=== PATIENT | female | born 1950 | race Caucasian/White ===

== ENCOUNTER 2016-11-19 15:00 | Emergency (ER) | payer MEDICARE, BC ==
[~2016-11-19] VITALS: Ht 157.5 cm; Wt 68.2 kg
[~2016-11-19 15:00] MED LIST: ATEN1TAB74 PO; CANA100T PO; CHOL50006 PO; CYCL1TAB29 PO; DAPA1TAB PO; DUEX800T PO; GABA100C4 PO; HYDR-3534 PO; HYDR-3580 PO; LIAL1.2T PO; METF1000 PO; PANT40TA3 PO; QUIN20TA4 PO; ROSU20 PO; VICT18IN SQ
[2016-11-19 15:02] VITALS: BP 147/69; PULSE 78; RESP 12; TEMP 97; O2SAT 99
[2016-11-19] MEDS ORDERED: ORPHENADRINE INJ 60 MG/2 ML AMP IM ONE (17:45)
[2016-11-19] MEDS ORDERED: ACETAMINOPHEN/HYDROcodone 325 MG/5 MG TAB PO ONE (17:45)
--- NOTE | 2016-11-19 17:51 | PD ---
HPI Chief Complaint: Back/ Neck Pain or Injury Time Seen by Provider: 17:46 Travel History International Travel<30 days: No Contact w/Intl Traveler<30days: No Traveled to known affect area: No History of Present Illness HPI 66-year-old female presents to the emergency room for evaluation of back pain that started this morning. Pain is in the left mid thoracic paraspinous musculature. States it feels like a spasm; it comes and goes. When it occurs it is a sharp, stabbing pain. She denies any trauma or injury to the area but states she was sitting playing cards for very long period of time yesterday which may have exacerbated her symptoms. She also has low back pain that radiates up to the thoracic area. Pain is severe 10/10, worse with range of motion. She took 400 mg ibuprofen this morning and 400 mg ibuprofen this afternoon without significant relief in symptoms. Denies abdominal pain, pleuritic chest pain, saddle anesthesia, loss of bowel or bladder control, or paresthesias. History of hypertension, diabetes, hyperlipidemia, and colitis. Patient had recent MRI which shows bulging disc at the T6-T7 level. She goes to physical therapy for chronic back pain and was at therapy today. PFSH Past Medical History Blood Disorders: No Cancer: No Cardiovascular Problems: No High Cholesterol: Yes Diabetes: Yes Diminished Hearing: No Endocrine: Yes Gastrointestinal Disorders: Yes (COLITIS) Glaucoma: No Genitourinary: No Hepatitis: No Hiatal Hernia: No Hypertension: Yes Immune Disorder: No Musculoskeletal: Yes Neurologic: Yes Psychiatric: No Reproductive: No Respiratory: No Integumentary: Yes Thyroid Disease: No ?: Not Menopausal: Yes Past Surgical History Pacemaker: No Other Surgery: Yes (cyst removal to forehead) Social History Alcohol Use: No Tobacco Use: No Substance Use: No Allergies-Medications (Allergen,Severity, Reaction): Coded Allergies: Sulfa (Unverified Allergy, Intermediate, BLISTERS, 11/19/16) Reported Meds & Prescriptions Reported Meds & Active Scripts Active Tramadol (Tramadol HCl) 50 Mg Tab 50 Mg PO Q8H PRN Robaxin (Methocarbamol) 500 Mg Tab 500 Mg PO Q8HR Pantoprazole (Pantoprazole Sodium) 40 Mg Tab 40 Mg PO DAILY Hydrocodone-Acetaminophen 7.5-325 mg Tab 1 Tab PO Q4H PRN Gabapentin 100 Mg Cap 100 Mg PO TID Flexeril (Cyclobenzaprine HCl) 10 Mg Tab 10 Mg PO Q8H Reported Farxiga (Dapagliflozin) 5 Mg Tab 5 Mg PO DAILY Duexis (Ibuprofen-Famotidine) 800-26.6 Mg Tab 1 Tab PO TID Crestor (Rosuvastatin Calcium) 20 Mg Tab 20 Mg PO HS Quinapril (Quinapril HCl) 20 Mg Tab 20 Mg PO DAILY Metformin (Metformin HCl) 1,000 Mg Tab 1,000 Mg PO BID With meals Lialda (Mesalamine) 1.2 Gm Tabdr 4.8 Gm PO DAILY Take with a meal. Victoza Inj (Liraglutide Inj) 18 Mg/3 Ml Pen 1.8 Mg SQ DAILY@1600 Lortab (Hydrocodone-Acetaminophen) 7.5-325 Mg Tab 1 Tab PO Q12HR PRN Vitamin D (Cholecalciferol) 5,000 Unit Tab 5,000 Units PO DAILY Invokana (Canagliflozin) 100 Mg Tab 100 Mg PO DAILY Take before 1st meal of day. Tenormin (Atenolol) 50 Mg Tab 50 Mg PO DAILY Review of Systems Except as stated in HPI: all other systems reviewed are Neg Physical Exam Narrative GENERAL: Well-nourished, well-developed elderly female in no acute distress. Afebrile. Ambulatory. Rocking in pain. SKIN: Warm and dry. No erythema or ecchymosis. HEAD: Normocephalic. EYES: No scleral icterus. No injection or drainage. NECK: Supple, trachea midline. No JVD or lymphadenopathy. CARDIOVASCULAR: Regular rate and rhythm without murmurs, gallops, or rubs. RESPIRATORY: Breath sounds equal bilaterally. No accessory muscle use. BACK: Extreme tenderness to palpation of the left thoracic paraspinous musculature at the T7-T8 level. No obvious deformity. No CVA tenderness. No midline tenderness. Data Data Last Documented VS Vital Signs Date Time Temp Pulse Resp B/P Pulse Ox O2 Delivery O2 Flow Rate FiO2 11/19/16 15:02 97.0 78 12 147/69 99 Room Air Orders Orphenadrine Inj (Norflex Inj) (11/19/16 17:45) Acetamin-Hydrocod 325-5 Mg ([place] 5-325 (11/19/16 17:45) MDM Medical Decision Making Medical Screen Exam Complete: Yes Emergency Medical Condition: Yes Medical Record Reviewed: Yes Differential Diagnosis Muscle spasm versus strain versus sprain versus fracture Narrative Course 66-year-old female presents to the emergency room for evaluation of acute on chronic back pain that worsened today. Denies trauma or injury to the area but believes she exacerbated her symptoms by playing cards for a long period of time yesterday. Patient reports chronic pain in the mid thoracic region that is worse today. She also reports low back pain but states the mid back pain is worse. Denies abdominal pain or pleuritic chest pain. Lung sounds clear and equal bilaterally. There is no midline tenderness on exam. There is tenderness to palpation of the paraspinous musculature of the thoracic spine at the T7 level. Denies focal neurological deficits. She is ambulatory. In obvious pain. Patient goes to physical therapy for her back pain. She had a recent MRI which showed bulging disks in the thoracic spine. She is given Norflex and Lortab in the emergency room and discharged with prescriptions for Robaxin and Lortab. Patient told to follow up with her primary care physician or return to the emergency room for worsening symptoms. She understands and agrees to this plan. Diagnosis Primary Impression: Spasm of thoracic back muscle Referrals: Primary Care Physician Patient Instructions: General Instructions, Muscle Spasm (ED) Additional Instructions: Rest and drink plenty of fluids. Take Robaxin as directed, as needed for pain. Take tramadol with food as directed, as needed for pain. Follow-up with a primary care physician. Return to the emergency room for worsening symptoms. Med/Other Pt SpecificInfo: Prescription(s) given Scripts Tramadol 50 Mg Tab50 Mg PO Q8H PRN (PAIN) #15 TAB Ref 0 Prov:Kristina Alvarado MD 11/19/16 Methocarbamol (Robaxin)500 Mg Vna191 Mg PO Q8HR #15 TAB Ref 0 Prov:Kristina Alvarado MD 11/19/16 Disposition: 01 DISCHARGE HOME Condition: Stable Bre Echavarria Nov 19, 2016 17:51
[2016-11-19] MEDS ORDERED: ROBA500T PO (17:53)
[2016-11-19] MEDS ORDERED: TRAM50TA PO ×2 (17:53→17:55)
[2016-11-19] MEDS ORDERED: HYDR-3533 PO (18:18)
== END 2016-11-19 18:44 | disposition home or self-care (01) ==
LOC: NEPB 15:00
DX: M62.830 Muscle spasm of back (principal); E78.00 Pure hypercholesterolemia, unspecified; E11.9 Type 2 diabetes mellitus without complications; I10 Essential (primary) hypertension
CPT/HCPCS: 96372; 99283; J2360

== ENCOUNTER 2017-09-23 14:20 | Emergency (ER) | payer OTHER, MEDICARE, BC ==
[~2017-09-23] VITALS: Ht 147.3 cm; Wt 72.0 kg
[2017-09-23 14:20] VITALS: BP 147/79; PULSE 82; RESP 16; TEMP 97.9; O2SAT 95
[~2017-09-23 14:20] MED LIST changes: +CYCL10TA PO; -CYCL1TAB29 PO; +HYDR-3533 PO; +ROBA500T PO
[2017-09-23] MEDS ORDERED: NEXI40GR (14:59)
[2017-09-23] MEDS ORDERED: VITA2000 PO (14:59)
[2017-09-23] MEDS ORDERED: LOSA50TA PO (14:59)
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
== END 2017-09-23 17:32 | disposition home or self-care (01) ==
LOC: PHEFT 14:20
DX: S16.1XXA Strain of muscle, fascia and tendon at neck level, initial encounter (principal); I10 Essential (primary) hypertension; E78.00 Pure hypercholesterolemia, unspecified; E11.9 Type 2 diabetes mellitus without complications; V49.9XXA Car occupant (driver) (passenger) injured in unspecified traffic accident, initial encounter; Y93.9 Activity, unspecified; Y92.9 Unspecified place or not applicable; Z79.01 Long term (current) use of anticoagulants; Z79.84 Long term (current) use of oral hypoglycemic drugs; Z79.899 Other long term (current) drug therapy; Z88.2 Allergy status to sulfonamides
CPT/HCPCS: 72125; 99284; L0150